=== PATIENT | female | born 1980 | race Caucasian/White ===

== ENCOUNTER 2020-09-23 04:23 | Emergency (ER) | payer OTHER ==
[~2020-09-23] VITALS: Ht 160 cm; Wt 75.5 kg
[2020-09-23] MEDS ORDERED: PRENATAL FORMU1 EAC3 PO (04:42)
== END 2020-09-23 05:00 | disposition home or self-care (01) ==
LOC: ED 04:23
DX: O99.891 Other specified diseases and conditions complicating pregnancy (principal); R30.0 Dysuria; R10.9 Unspecified abdominal pain; Z3A.32 32 weeks gestation of pregnancy
CPT/HCPCS: 81001; 99284